=== PATIENT | male | born 1925 | race Caucasian/White ===

== ENCOUNTER 2016-04-24 15:29 | Outpatient (RCR) | payer MEDICARE, BC ==
[2016-06-27] MEDS ORDERED: ASPIRIN E.C. 8181 MG PO (08:47)
[2016-06-27] MEDS ORDERED: ATORVASTATIN CA20 MG PO (08:47)
[2016-06-27] MEDS ORDERED: FUROSEMIDE20 MG PO (08:48)
[2016-06-27] MEDS ORDERED: FAMOTIDINE 20 MG PO (08:48)
[2016-06-27] MEDS ORDERED: CITALOPRAM HBR10 MG PO (08:48)
[2016-06-27] MEDS ORDERED: METOLAZONE5 MG PO (08:49)
[2016-06-27] MEDS ORDERED: HYDROCHLOROTHIA1 T15 PO (08:49)
[2016-06-27] MEDS ORDERED: POTASSIUM CHLO20 ME4 PO (08:49)
[2016-06-27] MEDS ORDERED: METOPROLOL TAR100 M1 PO (08:49)
[2016-06-27] MEDS ORDERED: CLOPIDOGREL75 M1 PO (08:50)
[2016-06-27] MEDS ORDERED: TERAZOSIN HCL2 M3 PO (08:50)
[2016-06-27] MEDS ORDERED: WARFARIN SODIUM4 MG PO (08:50)
== END 2016-06-27 | disposition home or self-care (01) ==
LOC: CARDREHAB 15:29
DX: Z48.812 Encounter for surgical aftercare following surgery on the circulatory system (principal); Z95.2 Presence of prosthetic heart valve

== ENCOUNTER 2016-06-27 07:51 | Emergency (ER) | payer MEDICARE, BC ==
[2016-06-27] MEDS ORDERED: ASPIRIN E.C. 8181 MG PO (08:47)
[2016-06-27] MEDS ORDERED: ATORVASTATIN CA20 MG PO (08:47)
[2016-06-27] MEDS ORDERED: FAMOTIDINE 20 MG PO (08:48)
[2016-06-27] MEDS ORDERED: CITALOPRAM HBR10 MG PO (08:48)
[2016-06-27] MEDS ORDERED: FUROSEMIDE20 MG PO (08:48)
[2016-06-27] MEDS ORDERED: POTASSIUM CHLO20 ME4 PO (08:49)
[2016-06-27] MEDS ORDERED: METOPROLOL TAR100 M1 PO (08:49)
[2016-06-27] MEDS ORDERED: METOLAZONE5 MG PO (08:49)
[2016-06-27] MEDS ORDERED: HYDROCHLOROTHIA1 T15 PO (08:49)
[2016-06-27] MEDS ORDERED: TERAZOSIN HCL2 M3 PO (08:50)
[2016-06-27] MEDS ORDERED: WARFARIN SODIUM4 MG PO (08:50)
[2016-06-27] MEDS ORDERED: CLOPIDOGREL75 M1 PO (08:50)
[2016-06-27 09:47] VITALS: BP 133/53
== END 2016-06-27 09:24 | disposition other institution (70) ==
LOC: ED 07:51
DX: S06.6X9A Traumatic subarachnoid hemorrhage with loss of consciousness of unspecified duration, initial encounter (principal); S02.11HA Other fracture of occiput, left side, initial encounter for closed fracture; R40.4 Transient alteration of awareness; R09.02 Hypoxemia; Z85.89 Personal history of malignant neoplasm of other organs and systems; W19.XXXA Unspecified fall, initial encounter; Z91.81 History of falling
CPT/HCPCS: J1940

== ENCOUNTER 2016-06-27 09:01 | Inpatient (IN) | payer MEDICARE, BC ==
[~2016-06-27 09:01] MED LIST: ASPIRIN E.C. 8181 MG PO; ATORVASTATIN CA20 MG PO; CITALOPRAM HBR10 MG PO; CLOPIDOGREL75 M1 PO; FAMOTIDINE 20 MG PO; FUROSEMIDE20 MG PO; HYDROCHLOROTHIA1 T15 PO; METOLAZONE5 MG PO; METOPROLOL TAR100 M1 PO; POTASSIUM CHLO20 ME4 PO; TERAZOSIN HCL2 M3 PO; WARFARIN SODIUM4 MG PO
[2016-06-27 09:35] VITALS: BP 133/53
== END 2016-06-27 11:49 | disposition expired | DRG 84 ==
LOC: MED/SURG 09:01
PROVIDERS: ADMIT Physician Assistant
DX: S02.11HA Other fracture of occiput, left side, initial encounter for closed fracture (principal); Z66 Do not resuscitate; Z51.5 Encounter for palliative care; R40.2433 Glasgow coma scale score 3-8, at hospital admission; R09.02 Hypoxemia; I10 Essential (primary) hypertension; I48.91 Unspecified atrial fibrillation; Z95.1 Presence of aortocoronary bypass graft; Z95.4 Presence of other heart-valve replacement; Z85.46 Personal history of malignant neoplasm of prostate; Z79.01 Long term (current) use of anticoagulants; W19.XXXA Unspecified fall, initial encounter; Y92.009 Unspecified place in unspecified non-institutional (private) residence as the place of occurrence of the external cause
CPT/HCPCS: J2270